=== PATIENT | female | born 1990 | race Caucasian/White ===

== ENCOUNTER 2018-11-22 20:41 | Emergency (ER) | payer OTHER ==
[~2018-11-22] VITALS: Ht 162.6 cm; Wt 61.3 kg
[2018-11-22 20:52] VITALS: BP 116/57; PULSE 69; RESP 18; Ht 162.6 cm; Wt 61.3 kg
[2018-11-22] MEDS ORDERED: IBUP-1542 PO (23:12)
[2018-11-22] MEDS ORDERED: traMADol 50 MG TAB PO ONE (23:30)
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
== END 2018-11-22 23:45 | disposition home or self-care (01) ==
LOC: FTE 20:41
DX: M54.5 Low back pain (principal); F17.210 Nicotine dependence, cigarettes, uncomplicated
CPT/HCPCS: 81025; Z7502; Z7610; 99283